=== PATIENT | female | born 1935 | race Caucasian/White ===

== ENCOUNTER → 2016-11-08 16:56 | Outpatient (CLI) | payer MEDICARE, BC ==
[2009-07-14 07:50] VITALS: BMI 29.2
== END | disposition home or self-care (01) ==
LOC: D.MAMMO 13:00
DX: Z12.31 Encounter for screening mammogram for malignant neoplasm of breast (principal)

== ENCOUNTER → 2017-08-15 10:23 | Outpatient (CLI) | payer MEDICARE, BC ==
[2009-07-14 07:50] VITALS: BMI 29.2
== END | disposition home or self-care (01) ==
LOC: D.CT 10:23
DX: R42 Dizziness and giddiness (principal)